=== PATIENT | female | born 1985 | race Caucasian/White ===

== ENCOUNTER → 2018-12-22 12:57 | Outpatient (CLI) | payer OTHER, SELFPAY ==
[2018-12-22 13:56] LABS: Add Manual Diff / Slide Review NO; Basophils Absolute Auto 0 /uL (0-100); Basophils Percent Auto 0.3 % (0-2); Eosinophils Absolute Auto 0 /uL (0-450); Eosinophils Percent Auto 0.3 % (2-4); Hematocrit 39.4 % (36-46); Hemoglobin 13.3 g/dL (12.0-16.0); Lymphocytes Absolute Auto 1800 /uL (1100-4500); Lymphocytes Percent Auto 19.4 % (25-40); Mean Corpuscular HGB Conc 33.8 % (30-36); Mean Corpuscular Hemoglobin 28.5 PG (26-34); Mean Corpuscular Volume 84.5 fL (80-100); Monocytes Absolute Auto 300 /uL (0-900); Monocytes Percent Auto 3.4 % (3-14); Neutrophils Absolute Auto 7200 /uL (1500-7000); Neutrophils Percent Auto 76.6 % (50-75); Platelet Count 303 X10^3/uL (150-400); Red Blood Cell Count 4.66 X10^6/uL (4.0-5.2); Red Cell Distribution Width 13.2 % (11.6-14.8); White Blood Cell Count 9.4 X10^3/uL (4.5-11.0)
[2018-12-22 15:52] LABS: Appearance Urine UA CLEAR; Bilirubin Urine UA NEGATIVE (NEGATIVE); Color Urine UA YELLOW; Glucose Urine UA NEGATIVE (Negative); Ketones Urine UA NEGATIVE (NEGATIVE); Leukocyte Esterase Urine UA NEGATIVE (NEGATIVE); Nitrite Urine UA NEGATIVE (Negative); Occult Blood Urine UA NEGATIVE (Negative); Protein Urine UA NEGATIVE (Negative); Urobilinogen Urine UA 0.2 E.U./dL (0.2); pH Urine UA 6.5 (4.5-8.0)
[2018-12-22 17:27] LABS: HIV 1 and 2 Antibody NEGATIVE (NEGATIVE); Hep C Virus Ab w/Reflex Quant NEGATIVE s/c (NEGATIVE); Hepatitis B Surface Antigen NEGATIVE s/c (NEGATIVE); Rubella Antibody IgG 63.5 IU/mL (>15)
[2018-12-24 14:26] LABS: RPR Screen Nonreactive (Nonreactive)
== END ==
PROVIDERS: PCP Specialist; Visit Provider Specialist
DX: Z34.01 Encounter for supervision of normal first pregnancy, first trimester (principal)
CPT/HCPCS: 36415; 80055; 81003; 86703; 86787; 86803; 86850; 86900; 86901; 87086

== ENCOUNTER → 2019-02-16 12:05 | Outpatient (CLI) | payer OTHER, SELFPAY ==
[2019-02-20 13:23] LABS: AFP, Serum 79.4 ng/mL; Calc Gestational Age 18.4; Cigarette Smoker N; Donated Egg NOT GIVEN; Donor Egg Age NOT GIVEN; Estriol, Free 1.73 ng/mL; Inhibin A, Dimeric 186 pg/mL; Maternal Weight 120 lbs; Number of Fetuses NOT GIVEN; Previous Pregnancy Down Syndro NOT GIVEN; hCG, MoM 0.84; hCG, Serum 24.9 IU/mL
== END ==
PROVIDERS: PCP Specialist; Visit Provider Specialist
DX: Z34.02 Encounter for supervision of normal first pregnancy, second trimester (principal); Z3A.18 18 weeks gestation of pregnancy
CPT/HCPCS: 36415; 82105; 82677; 84702; 86336

== ENCOUNTER → 2019-03-02 12:51 | Outpatient (CLI) | payer OTHER, SELFPAY ==
--- NOTE | 2019-03-02 12:58 | DI.US.S_ITS ---
PROCEDURE: US OB >= 14 WEEKS FETUS INDICATIONS: 20 WEEK ANATOMY SCAN OUTSIDE/PRIOR DATING DATA: Last menstrual period (LMP): 10/10/18. LMP-based estimated date of delivery (ANTONIA): 07/17/19. First dating scan (date and location): This study, 03/02/19. Estimated date of delivery (ANTONIA) from first dating scan: Centered on 07/13/19. TECHNIQUE: Real-time scanning was performed of the fetus, with image documentation and biometric measurements. Endovaginal scanning: Not needed for this study COMPARISON: [facility], , OB >= 14 WEEKS FETUS, 02/16/2019, 11:53. FINDINGS: General: A single living intrauterine gestation is present. Presentation: Breech. Placenta: Placental position is anterior, without previa. Lower placental edge 2 cm or less from internal cervical os qualifies as low lying placenta. Amniotic fluid index: 16.4 cm, normal range is 5-24 cm. heart rate: 140 beats per minute. Maternal cervical canal: 4.5 cm long. Normal lower limit is 2.5 cm. biometrics: Biparietal diameter: 5.1 cm, 21 weeks 2 days Head circumference: 18.6 cm, 21 weeks 0 days Abdominal circumference: 15.4 cm, 20 weeks 4 days Femur length: 3.4 cm, 20 weeks 6 days Estimated gestational age from initial scan: not applicable. Composite gestational age from present scan: 21 weeks 0 days Estimated weight and percentile: 373 g, 62nd percentile Measurement variability for biometric dating: +/- 7 days from 14 weeks to 15 weeks 6 days gestation, +/- 10 days from 16 weeks to 21 weeks 6 days gestation, +/- 2 weeks from 22 weeks to 27 weeks 6 days gestation, +/- 3 weeks for 28 weeks gestation or later. weight reference: 4500 g or EFW >90/95% is considered macrosomia or large for gestational age. EFW <10% is small for gestational age. EFW 5% or less is considered intra-uterine growth restriction. Anatomic survey: Neuro: Ventricles are non-dilated at less than 10 mm. Cisterna magna is normal at 3-11 mm. Cerebellum is normal in size and morphology. Nuchal skin fold: Normal at less than 6 mm between 14-21 weeks gestational age. Face: Nose and lips, facial profile are normal. Spine: No evidence for spina bifida. Heart: 4-chambered heart is present, with normal ventricular outflow tracts. Diaphragm: Diaphragm is intact. Stomach: Left-sided stomach is present. Kidneys: No hydronephrosis. Normal is less than 5 mm in 2nd trimester, less than 7 mm in 3rd trimester. Cord: 3-vessel cord has orthotopic insertion. Bladder: Normal in size. Extremities: All 4 extremities identified. IMPRESSION: Single living intrauterine gestation with normal survey of anatomy. Breech presentation at this time. Anterior placenta, normal amniotic fluid volume. The delivery date is projected to be centered on 07/13/19. Dictated by: Francisco Wayne M.D. on 03/02/2019 at 15:13 Approved by: Francisco Wayne M.D. on 03/02/2019 at 15:16
== END ==
PROVIDERS: PCP Specialist; Visit Provider Specialist
DX: Z34.82 Encounter for supervision of other normal pregnancy, second trimester (principal); Z3A.21 21 weeks gestation of pregnancy
CPT/HCPCS: 76811

== ENCOUNTER → 2019-04-20 12:47 | Outpatient (CLI) | payer OTHER, SELFPAY ==
[2019-04-20 14:36] LABS: Hemoglobin 11.7 g/dL (12.0-16.0)
[2019-04-20 15:50] LABS: GTT (PREG) 1 Hour PP 50gm Dose 114 mg/dL (76-139)
== END ==
PROVIDERS: PCP Specialist; Visit Provider Specialist
DX: Z34.03 Encounter for supervision of normal first pregnancy, third trimester (principal)
CPT/HCPCS: 36415; 82950; 85014; 85018

== ENCOUNTER → 2019-06-22 12:08 | Outpatient (CLI) | payer OTHER, SELFPAY ==
[2019-06-23 10:05] LABS: Strep Grp B PCR NEG for Grp B Strep
== END ==
PROVIDERS: PCP Specialist; Visit Provider Specialist
DX: Z34.83 Encounter for supervision of other normal pregnancy, third trimester (principal)
CPT/HCPCS: 87653

== ENCOUNTER 2019-06-29 06:51 | Inpatient (IN) | payer OTHER, SELFPAY ==
[2019-06-29] MEDS: LACTATED RINGERS 1,000 ML 100 ML IV ×2 (07:30→08:41)
[2019-06-29 07:43] LABS: Add Manual Diff / Slide Review NO; Basophils Absolute Auto 100 /uL (0-100); Basophils Percent Auto 0.7 % (0-2); Eosinophils Absolute Auto 0 /uL (0-450); Eosinophils Percent Auto 0.2 % (2-4); Hematocrit 34.2 % (36-46); Hemoglobin 11.5 g/dL (12.0-16.0); Lymphocytes Absolute Auto 2200 /uL (1100-4500); Lymphocytes Percent Auto 13.5 % (25-40); Mean Corpuscular HGB Conc 33.5 % (30-36); Mean Corpuscular Hemoglobin 26.1 PG (26-34); Mean Corpuscular Volume 78.1 fL (80-100); Monocytes Absolute Auto 600 /uL (0-900); Monocytes Percent Auto 3.6 % (3-14); Neutrophils Absolute Auto 13400 /uL (1500-7000); Platelet Count 240 X10^3/uL (150-400); Red Blood Cell Count 4.38 X10^6/uL (4.0-5.2); Red Cell Distribution Width 13.4 % (11.6-14.8); White Blood Cell Count 16.3 X10^3/uL (4.5-11.0)
--- NOTE | 2019-06-29 07:51 | PM.OBHP.1 ---
OB HPI Date/Time Date of admission: 06/29/19 Date Patient Seen: 06/29/19 Time Patient Seen: 07:52 History of Present Condition Chief complaint: EVALUATION OF LABOR : 2 Para: 1 Estimated Date of Delivery: 07/17/19 Estimated Gestational Age (weeks): 37 Narrative: [place] is a 33 year old female with spontaneous rupture membranes in active labor History of Present care: good care, initiated at week # (10), number of visits (9) and pounds weight gain (18) Dating criteria: LMP confirmed by 1st trimester US Ultrasounds: normal mid trimester US Obstetrical complications: none Medical complications: none Preadmission Labs Blood type: A (+) positive -: Antibody screen: negative, GBS status: negative, HBsAG: negative, HIV: negative and RPR/VDLR: negative -: Rubella: immune and Varicella: immune Quad screen: Normal 1 hr GTT: 114 Prior (ies) History: 08/2015 14 week demise Evaluation Evaluation Baseline heart rate: 140 Variability: Moderate (11-25) monitor accelerations: Present monitor decelerations: Episodic Contraction Frequency (minutes): 3 Uterine Contraction Intensity: Strong/Firm Category of Tracing: II Cervical dilation (cm): 9 Cervical effacement (%): 100 station: 0 Laboratory results: Laboratory Tests 06/29/19 06:50 WBC 16.3 H RBC 4.38 Hgb 11.5 L Hct 34.2 L MCV 78.1 L MCH 26.1 MCHC 33.5 RDW 13.4 Plt Count 240 Neut % (Auto) 82.0 H Lymph % (Auto) 13.5 L [place] % (Auto) 3.6 Eos % (Auto) 0.2 L Baso % (Auto) 0.7 Neut # (Auto) 10147 H Lymph # (Auto) 2200 [place] # (Auto) 600 Eos # (Auto) 0 Baso # (Auto) 100 PFSH Medical History (Updated 06/29/19 @ 08:01 by Felicity Ram MD) Migraine headache with aura (Chronic) Surgical History (Updated 06/29/19 @ 08:02 by Felicity Ram MD) H/O dilation and curettage (Inactive) Social History Smoking Status: Never smoker Social History Smoking Status: Never smoker Meds Home Medications Medication Instructions Recorded Confirmed Type 1 tab PO DAILY 12/21/18 12/21/18 History vitamin,calcium,vxcvcvhe-yyam-sebpf acid tablet omeprazole 40 mg capsule,delayed 40 mg PO DAILY #30 cap 05/25/19 Rx release Allergies Allergy/AdvReac Type Severity Reaction Status Date / Time No Known Drug Allergies Allergy Verified 12/21/18 18:30 Review of Systems Review of Systems Patient denies any signs or symptoms of preeclampsia she had spontaneous rupture membranes. Good movement. No fevers All systems reviewed & are unremarkable except as noted in HPI and below Exam Vital Signs (past 8 hours): Blood pressure 156/90, pulse 111, temperature 97.6? Narrative Exam Narrative: HEENT exam within normal limits. Lungs are clear to auscultation and percussion. Heart is regular rate and rhythm no S3-S4 or murmurs. Abdomen is gravid. Extremities without edema and nontender. Objective Labs Result Diagrams: 06/29/19 06:50 Labs: Laboratory Results - last 24 hr 06/29/19 06:50 WBC 16.3 H RBC 4.38 Hgb 11.5 L Hct 34.2 L MCV 78.1 L MCH 26.1 MCHC 33.5 RDW 13.4 Plt Count 240 Neut % (Auto) 82.0 H Lymph % (Auto) 13.5 L [place] % (Auto) 3.6 Eos % (Auto) 0.2 L Baso % (Auto) 0.7 Neut # (Auto) 92803 H Lymph # (Auto) 2200 [place] # (Auto) 600 Eos # (Auto) 0 Baso # (Auto) 100 Assessment and Plan Assessment and Plan Assessment and Plan narrative: Thirty-seven week gestation in active labor. Anticipate vaginal delivery.
--- NOTE | 2019-06-29 08:04 | P.HPOB_ITS ---
OB HPI Date/Time Date of admission: 06/29/19 Date Patient Seen: 06/29/19 Time Patient Seen: 07:52 History of Present Condition Chief complaint: EVALUATION OF LABOR : 2 Para: 1 Estimated Date of Delivery: 07/17/19 Estimated Gestational Age (weeks): 37 Narrative: [place] is a 33 year old female with spontaneous rupture membranes in active labor History of Present care: good care, initiated at week # (10), number of visits (9) and pounds weight gain (18) Dating criteria: LMP confirmed by 1st trimester US Ultrasounds: normal mid trimester US Obstetrical complications: none Medical complications: none Preadmission Labs Blood type: A (+) positive -: Antibody screen: negative, GBS status: negative, HBsAG: negative, HIV: negative and RPR/VDLR: negative -: Rubella: immune and Varicella: immune Quad screen: Normal 1 hr GTT: 114 Prior (ies) History: 08/2015 14 week demise Evaluation Evaluation Baseline heart rate: 140 Variability: Moderate (11-25) monitor accelerations: Present monitor decelerations: Episodic Contraction Frequency (minutes): 3 Uterine Contraction Intensity: Strong/Firm Category of Tracing: II Cervical dilation (cm): 9 Cervical effacement (%): 100 station: 0 Laboratory results: Laboratory Tests 06/29/19 06:50 WBC 16.3 H RBC 4.38 Hgb 11.5 L Hct 34.2 L MCV 78.1 L MCH 26.1 MCHC 33.5 RDW 13.4 Plt Count 240 Neut % (Auto) 82.0 H Lymph % (Auto) 13.5 L [place] % (Auto) 3.6 Eos % (Auto) 0.2 L Baso % (Auto) 0.7 Neut # (Auto) 04268 H Lymph # (Auto) 2200 [place] # (Auto) 600 Eos # (Auto) 0 Baso # (Auto) 100 PFSH Medical History (Updated 06/29/19 @ 08:01 by Felicity Ram MD) Migraine headache with aura (Chronic) Surgical History (Updated 06/29/19 @ 08:02 by Felicity Ram MD) H/O dilation and curettage (Inactive) Social History Smoking Status: Never smoker Social History Smoking Status: Never smoker Meds Home Medications Medication Instructions Recorded Confirmed Type 1 tab PO DAILY 12/21/18 12/21/18 History vitamin,calcium,oqqfcsar-vpox-vsmaw acid tablet omeprazole 40 mg capsule,delayed 40 mg PO DAILY #30 cap 05/25/19 Rx release Allergies Allergy/AdvReac Type Severity Reaction Status Date / Time No Known Drug Allergies Allergy Verified 12/21/18 18:30 Review of Systems Review of Systems Patient denies any signs or symptoms of preeclampsia she had spontaneous rupture membranes. Good movement. No fevers All systems reviewed & are unremarkable except as noted in HPI and below Exam Vital Signs (past 8 hours): Blood pressure 156/90, pulse 111, temperature 97.6? Narrative Exam Narrative: HEENT exam within normal limits. Lungs are clear to auscultation and percussion. Heart is regular rate and rhythm no S3-S4 or murmurs. Abdomen is gravid. Extremities without edema and nontender. Objective Labs Result Diagrams: 06/29/19 06:50 Labs: Laboratory Results - last 24 hr 06/29/19 06:50 WBC 16.3 H RBC 4.38 Hgb 11.5 L Hct 34.2 L MCV 78.1 L MCH 26.1 MCHC 33.5 RDW 13.4 Plt Count 240 Neut % (Auto) 82.0 H Lymph % (Auto) 13.5 L [place] % (Auto) 3.6 Eos % (Auto) 0.2 L Baso % (Auto) 0.7 Neut # (Auto) 75639 H Lymph # (Auto) 2200 [place] # (Auto) 600 Eos # (Auto) 0 Baso # (Auto) 100 Assessment and Plan Assessment and Plan Assessment and Plan narrative: Thirty-seven week gestation in active labor. Anticipate vaginal delivery.
[2019-06-29 10:54] VITALS: BP 132/75
[2019-06-29] MEDS: OXYTOCIN 10 UNIT/ML VIAL 20 UNIT (11:26)
--- NOTE | 2019-06-29 11:46 | PM.OBPRVD ---
Delivery date: 06/29/19 Intrapartal events: Prolonged 2nd Stage > 2.5 hours Cervical ripening method: none Induction method: none Delivery monitor: external FHT and external uterine Route of delivery: forceps (Low ) Indication for instrumentation: maternal exhaustion L&D Laceration Description: Vaginal - 3rd Degree (Partial) Delivery repair: vicryl (0 for the rectal sphincter capsule on the right side) and chromic (3-0) Estimated blood loss (mL): 200 Anesthesia type: Epidural Narrative: Patient arrived on Labor and delivery in active labor after spontaneous rupture membranes. She received an epidural catheter for pain control. She progressed rapidly to complete dilation. heart tones with intermittent severe variable decelerations. These responded to position change, O2, IV fluid bolus. After 2-1/2 hours the patient 0 had maternal exhaustion and requested assistance for delivery. The patient's bladder was drained with an in-and out red rubber catheter. Forceps were placed. With 1 contraction the infant was delivered and placed on the maternal abdomen. After the cord stopped pulsating the cord was clamped, cut, and cord bloods obtained. The patient was found to have a partial tear in the external rectal sphincter capsule only on the right side. As well as a right vaginal sidewall tear. Interrupted figure of 8 sutures of 0 Vicryl were used to repair the capsule. The right sidewall tear was repaired with 3 0 chromic suture. The remaining repair was closed in the usual 2 layer fashion with 3 0 chromic suture. Estimated blood loss 200 cc. Both infant and mother doing well. [place] Baby 1: gender: Male Presentation: vertex position: Right Occiput Anterior Placenta delivery description: Spontaneous cord vessel description: Around Extremity x1 (Shoulder) score (1 min): 8 score (5 min): 9
--- NOTE | 2019-06-29 11:54 | P.PCNOB_ITS ---
Delivery date: 06/29/19 Intrapartal events: Prolonged 2nd Stage > 2.5 hours Cervical ripening method: none Induction method: none Delivery monitor: external FHT and external uterine Route of delivery: forceps (Low ) Indication for instrumentation: maternal exhaustion L&D Laceration Description: Vaginal - 3rd Degree (Partial) Delivery repair: vicryl (0 for the rectal sphincter capsule on the right side) and chromic (3-0) Estimated blood loss (mL): 200 Anesthesia type: Epidural Narrative: Patient arrived on Labor and delivery in active labor after spontaneous rupture membranes. She received an epidural catheter for pain control. She progressed rapidly to complete dilation. heart tones with intermittent severe variable decelerations. These responded to position change, O2, IV fluid bolus. After 2-1/2 hours the patient 0 had maternal exhaustion and requested assistance for delivery. The patient's bladder was drained with an in-and out red rubber catheter. Forceps were placed. With 1 contraction the infant was delivered and placed on the maternal abdomen. After the cord stopped pulsating the cord was clamped, cut, and cord bloods obtained. The patient was found to have a partial tear in the external rectal sphincter capsule only on the right side. As well as a right vaginal sidewall tear. Interrupted figure of 8 sutures of 0 Vicryl were used to repair the capsule. The right sidewall tear was repaired with 3 0 chromic suture. The remaining repair was closed in t he usual 2 layer fashion with 3 0 chromic suture. Estimated blood loss 200 cc. Both infant and mother doing well. [place] Baby 1: Infant gender: Male Presentation: vertex position: Right Occiput Anterior Placenta delivery description: Spontaneous cord vessel description: Around Extremity x1 (Shoulder) score (1 min): 8 score (5 min): 9
[2019-06-29] MEDS: IBUPROFEN 600 MG TABLET PO ×2 (13:48→19:49)
[2019-06-29] MEDS: DERMOPLAST SPRAY 20% 60 ML 1 SPRAY TOP (13:49)
[2019-06-29 21:08] VITALS: TEMP 37.3
[2019-06-29 21:32] VITALS: TEMP 37.3
[2019-06-29] MEDS: HYDROCODONE/ACET 5/325 TABLET 2 TAB PO (21:32)
[2019-06-30] MEDS: HYDROCODONE/ACET 5/325 TABLET 2 TAB PO (01:54)
[2019-06-30] MEDS: IBUPROFEN 600 MG TABLET PO ×3 (01:57→17:12)
[2019-06-30 09:13] VITALS: TEMP 37.3
[2019-06-30] MEDS: DOCUSATE 250 MG CAPSULE PO (09:13)
[2019-06-30] MEDS: MAGNESIUM HYDROXIDE 30 ML UDC PO (09:15)
--- NOTE | 2019-06-30 10:12 | P.PNOB_ITS ---
Subjective - OB Patient comments: no complaints baby status: doing well [place] feeding status: exclusively breast feeding Narrative: Patient post vaginal delivery forceps assisted. She had a partial third-degree tear. She is doing well . She is taking p.o. well para she is ambulating well. Her IVs been discontinued. She is voiding well and g ood volumes. Date Patient Seen: 06/30/19 Time Patient Seen: 10:11 Exam Vital Signs (past 8 hours): - 06/30/19 09:13 Temperature 99.1 F Narrative Exam Narrative: Fundus U minus two Lochia scant [employer] without ecchymoses or swelling Objective Labs Result Diagrams: 06/29/19 06:50 Assessment & Plan Plan day: 1 plan OB: routine care Time Spent With Patient Total time spent is greater than 50% in coordination of care (as documented) at patient's floor/unit and/or counseling patient: less than 15 minutes
[2019-06-30 10:25] LABS: Hematocrit 27.6 % (36-46)
[2019-06-30] MEDS: ACETAMINOPHEN 325 MG TABLET 650 MG PO (17:12)
[2019-06-30 18:44] LABS: Appearance Urine UA SL CLOUDY; Bilirubin Urine UA NEGATIVE (NEGATIVE); Glucose Urine UA NEGATIVE (Negative); Ketones Urine UA NEGATIVE (NEGATIVE); Leukocyte Esterase Urine UA 1+ (NEGATIVE); Nitrite Urine UA NEGATIVE (Negative); Occult Blood Urine UA 3+ (Negative); Protein Urine UA NEGATIVE (Negative); Urobilinogen Urine UA 0.2 E.U./dL (0.2); pH Urine UA 7.5 (4.5-8.0)
[2019-06-30 18:52] LABS: Color Urine UA PINK
[2019-06-30 19:03] LABS: Bacteria Urine Occasional (0-1); Culture Indicated Urine Specimen Cultured; RBC Urine 30-100/HPF (0-5/HPF); Squamous Epithelial Cell Urine 0-1 /HPF (0-5/HPF); WBC Urine 5-10/HPF (0-5/HPF)
[2019-07-01] MEDS: IBUPROFEN 600 MG TABLET PO (04:20)
[2019-07-01] MEDS: HYDROCODONE/ACET 5/325 TABLET 2 TAB PO (04:21)
--- NOTE | 2019-07-01 08:47 | PM.OBDS.1 ---
Discharge Providers Date of admission: 06/29/19 06:51 Discharge Date: 07/01/19 Primary care physician: Felicity Ram MD Consults: 06/29/19 07:27 Consult to Anesthesiology Urgent Comment: Consulting Provider: Anesthesiologist Reason for consultation: Epidural Has provider been notified: No 06/29/19 12:21 Consult to [employer] Routine Comment: Discharge provider: Kartik Stewart MD Summary Date Patient Seen: 07/01/19 Time Patient Seen: 08:48 Peripartum Data Infant Delivery Method: Assisted Delivery (Low forceps delivery) Laceration description: Vaginal - 2nd Degree Procedures: Low forceps delivery with small sulcus tear complications: other (Problems voiding for 24 hours then okay) Status at Discharge Cognitive/behavioral status at discharge: oriented Functional status at discharge: independent ambulation Overall status at discharge: patient is progressing back to baseline Time Spent with Patient Total time spent providing and/or coordinating discharge services: Less than 30 minutes Objective Labs Result Diagrams: 06/30/19 10:15 Labs: Laboratory Results - last 24 hr 06/30/19 06/30/19 10:15 18:42 Hct 27.6 L Urine Color [place] Urine Appearance Sl cloudy Urine pH 7.5 Ur Specific [place] 1.010 Urine Protein Negative Urine Glucose (UA) Negative Urine Ketones Negative Urine Occult Blood 3+ H Urine Nitrate Negative Urine Bilirubin Negative Urine Urobilinogen 0.2 Ur Leukocyte Esterase 1+ H Urine RBC 30-100/hpf H Urine WBC 5-10/hpf H Ur Squamous Epith Cells 0-1 /hpf Urine Bacteria Occasional (0-1) Ur Culture Indicated? Specimen cultured Exam Narrative Exam Narrative: Fundus U minus two Lochia scant Perineum without ecchymosis, hematoma Discharge Plan Discharge Plan Patient Disposition: Home Discharge Med Rec/Prescriptions Prescriptions: New Dermoplast (with menthol) 20-0.5 % Aerosol 1 spray topical Q1HR PRN (Reason: Pain, Moderate (4-6)) Qty: 56 RF: 0 docusate sodium 250 mg Capsule 250 mg PO DAILY Qty: 14 RF: 0 hydrocodone-acetaminophen 5-325 mg Tablet 2 tab PO Q4HR PRN (Reason: Pain, Severe (7-10)) Qty: 14 RF: 0 magnesium hydroxide [Milk of Magnesia] 400 mg/5 mL Suspension 30 ml PO DAILY PRN (Reason: Constipation) Qty: 118 RF: 0 ibuprofen 600 mg Tablet 600 mg PO Q6HR PRN (Reason: Pain, Mild (1-3)) Qty: 20 RF: 0 Discontinued prenat.vits,da,zmo-hryl-gdvor tablet 1 tab PO DAILY RF: 0 omeprazole 40 mg capsule,delayed release(DR/EC) 40 mg PO DAILY Qty: 30 RF: 2 Follow up/Referrals: Felicity Ram MD [Primary Care Provider] - 08/03/19 Provider Discharge Instructions Diet: Diet as Tolerated Activity: Up ad amber, may shower, no cord Skin/Wound/Dressing Care Skin care: Keep episiotomy clean and dry Report to your healthcare provider any signs of infection, such as:: chills, fever, increased pain, unusual drainage and unusual redness Dressing: None Discharge Data Primary Care Provider: Felicity Ram Attending Provider: Felicity Ram Admit Date/Time: 06/29/19 06:51
[2019-07-01 09:06] VITALS: BP 106/67; PULSE 79; RESP 16; TEMP 37.2
== END 2019-07-01 12:05 | disposition home or self-care (01) | DRG 768 ==
PROVIDERS: Admitting Provider Specialist; PCP Specialist; Visit Provider Specialist
DX: O75.81 Maternal exhaustion complicating labor and delivery (principal); Z37.0 Single live birth; Z3A.37 37 weeks gestation of pregnancy; O70.20 Third degree perineal laceration during delivery, unspecified; O71.89 Other specified obstetric trauma
CPT/HCPCS: 01967; 36415; 59050; 59400; 81001; 84112; 85014; 85025; 86850; 86900; 86901; 87077; 87086; 87186; G0379; J2590

== ENCOUNTER → 2021-07-28 16:31 | Outpatient (CLI) | payer OTHER, SELFPAY ==
[2021-07-28 17:56] LABS: Add Manual Diff / Slide Review NO; Basophils Absolute Auto 100 /uL (0-100); Basophils Percent Auto 0.9 % (0-2); Eosinophils Absolute Auto 100 /uL (0-450); Eosinophils Percent Auto 0.8 % (2-4); Hematocrit 36.6 % (36-46); Lymphocytes Absolute Auto 1900 /uL (1100-4500); Lymphocytes Percent Auto 30.3 % (25-40); Mean Corpuscular HGB Conc 32.8 % (30-36); Mean Corpuscular Volume 79.2 fL (80-100); Monocytes Absolute Auto 400 /uL (0-900); Monocytes Percent Auto 5.9 % (3-14); Neutrophils Absolute Auto 4000 /uL (1500-7000); Neutrophils Percent Auto 62.1 % (50-75); Platelet Count 208 X10^3/uL (150-400); Red Blood Cell Count 4.62 X10^6/uL (4.0-5.2); Red Cell Distribution Width 15.4 % (11.6-14.8); White Blood Cell Count 6.4 X10^3/uL (4.5-11.0)
[2021-07-28 18:02] LABS: Alanine Aminotransferase 39 IU/L (<35); Albumin 4.2 g/dL (3.5-5.0); Albumin Globulin Ratio 1.2 (1.0-2.8); Alkaline Phosphatase 69 U/L (38-126); Aspartate Aminotransferase 33 IU/L (14-36); BUN Creatinine Ratio 12.7 (6-22); Bilirubin Total 0.3 mg/dL (0.2-1.3); Blood Urea Nitrogen 7 mg/dL (7-17); Calcium 8.7 mg/dL (8.4-10.2); Carbon Dioxide 30 mmol/L (22-32); Chloride 106 mmol/L (98-107); Estimated Glomerular Filt Rate > 60.0 mL/min (>60); Globulin 3.4 g/dL (1.7-4.1); Glucose 88 mg/dL (70-100); HEMOLYSIS < 15 (0-50); Potassium 3.5 mmol/L (3.4-5.1); Sodium 141 mmol/L (137-145); Total Protein 7.6 g/dL (6.3-8.2)
[2021-07-28 18:13] LABS: Pregnancy Test Urine Negative (Negative)
== END ==
PROVIDERS: PCP Nurse Practitioner Family; Referring Provider Registered Nurse; Visit Provider Registered Nurse
DX: Z30.40 Encounter for surveillance of contraceptives, unspecified (principal)
CPT/HCPCS: 36415; 80053; 81025; 85025

== ENCOUNTER 2024-08-17 12:34 | Emergency (ER) | payer OTHER, SELFPAY ==
[2024-08-17 12:37] VITALS: BP 125/77; PULSE 98; RESP 17; TEMP 36.7; O2SAT 100; BMI 26.6
--- NOTE | 2024-08-17 12:48 | EKG_ITS ---
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
--- NOTE | 2024-08-17 12:51 | DI.US.S_ITS ---
PROCEDURE: US OB <= 14 WEEKS FETUS INDICATIONS: CRAMPING OUTSIDE/PRIOR DATING DATA: Last menstrual period (LMP): 06/13/24 LMP-based estimated date of delivery (ANTONIA): 03/20/25. First dating scan (date and location): This study. Estimated date of delivery (ANTONIA) from first dating scan: 03/28/25. The calculations are made using the ultrasound derived ANTONIA of today. TECHNIQUE: Real-time scanning was performed of the fetus and maternal pelvic organs, with image documentation. Endovaginal scanning was also performed to better visualize the fetus and maternal ovaries. COMPARISON: None. FINDINGS: Embryo: [place]-rump length 1.7 cm correlates with a gestational age of 8 weeks 1 day, +/-5 days Heart rate: 178 beats per minute Maternal organs: Ovaries not well seen due to bowel gas. IMPRESSION: Living intrauterine gestation, early 1st trimester. Delivery date projected to be centered on 03/28/25, +/-5 days. Dictated by: Francisco Wayne M.D. on 08/17/2024 at 13:45 Approved by: Francisco Wayne M.D. on 08/17/2024 at 13:47
[2024-08-17 13:03] LABS: Add Manual Diff / Slide Review NO; Basophils Absolute Auto 0 /uL (0-100); Basophils Percent Auto 0.4 % (0-2); Eosinophils Absolute Auto 100 /uL (0-450); Eosinophils Percent Auto 0.5 % (2-4); Hematocrit 33.6 % (36-46); Hemoglobin 11.2 g/dL (12.0-16.0); Lymphocytes Absolute Auto 2000 /uL (1100-4500); Lymphocytes Percent Auto 19.2 % (25-40); Mean Corpuscular HGB Conc 33.3 % (30-36); Mean Corpuscular Hemoglobin 25.7 PG (26-34); Mean Corpuscular Volume 77.1 fL (80-100); Monocytes Absolute Auto 600 /uL (0-900); Monocytes Percent Auto 6.1 % (3-14); Neutrophils Absolute Auto 7700 /uL (1500-7000); Neutrophils Percent Auto 73.8 % (50-75); Platelet Count 316 X10^3/uL (150-400); Red Blood Cell Count 4.35 X10^6/uL (4.0-5.2); Red Cell Distribution Width 16.5 % (11.6-14.8); White Blood Cell Count 10.5 X10^3/uL (4.5-11.0)
[2024-08-17 13:09] LABS: INR 0.9 (0.9-1.3); Prothrombin Time 10.5 SECONDS (9.4-12.5)
[2024-08-17 13:11] LABS: PTT Partial Thromboplastin Tim 35 SECONDS (25.1-36.5)
[2024-08-17 13:11] LABS: Pregnancy Test Urine Positive (Negative)
[2024-08-17 13:13] LABS: Appearance Urine UA CLEAR; Bilirubin Urine UA NEGATIVE (NEGATIVE); Color Urine UA YELLOW; Glucose Urine UA NEGATIVE (Negative); Ketones Urine UA NEGATIVE (NEGATIVE); Leukocyte Esterase Urine UA 1+ (NEGATIVE); Nitrite Urine UA NEGATIVE (Negative); Occult Blood Urine UA NEGATIVE (Negative); Protein Urine UA NEGATIVE (Negative); Urobilinogen Urine UA 0.2 E.U./dL (0.2)
[2024-08-17 13:31] LABS: Bacteria Urine Moderate (10-30); Culture Indicated Urine Specimen Cultured; RBC Urine None Seen (0-5/HPF); Squamous Epithelial Cell Urine 1-5 /HPF (0-5/HPF); Urine Volume 10mL (spun); WBC Urine 1-5/HPF (0-5/HPF)
[2024-08-17 13:32] LABS: Alanine Aminotransferase 16 IU/L (<35); Albumin 3.6 g/dL (3.5-5.0); Alkaline Phosphatase 48 U/L (38-126); Aspartate Aminotransferase 23 IU/L (14-36); BUN Creatinine Ratio 11.5 (6-22); Bilirubin Total 0.2 mg/dL (0.2-1.3); Blood Urea Nitrogen 6 mg/dL (7-17); Calcium 8.5 mg/dL (8.4-10.2); Carbon Dioxide 23 mmol/L (22-32); Chloride 103 mmol/L (98-107); Creatine Kinase 47 U/L (30-135); Estimated Glomerular Filt Rate > 60 mL/min (>60); Globulin 3.7 g/dL (1.7-4.1); Glucose 102 mg/dL (70-100); HEMOLYSIS < 15 (0-50); Lipase 189 U/L (23-300); Magnesium 2.1 mg/dL (1.6-2.3); Potassium 3.4 mmol/L (3.4-5.1); Sodium 133 mmol/L (137-145); Total Protein 7.3 g/dL (6.3-8.2)
[2024-08-17 13:43] LABS: NT-proBNP (BNP-Adult 18+) < 20 pg/mL (<125); Troponin I < 0.012 ng/mL (0.01-0.034)
[2024-08-17 13:54] LABS: COVID-19 CEPHEID 4-PLEX PCR Negative (Negative); Influenza A - CEPHEID Flu A NEGATIVE (NEGATIVE); Influenza B - CEPHEID Flu B NEGATIVE (NEGATIVE); Respiratory Syncytial Virus Negative (Negative)
--- NOTE | 2024-08-17 20:55 | ED.CHESTPAIN ---
HPI - Chest Pain General Chief Complaint: Chest Pain Stated Complaint: 6wks Preg, Chest Pain, Cramps Source: patient Mode of arrival: Ambulatory History of Present Illness HPI narrative: Patient left without being seen by provider Related Data Previous Rx's Medication Instructions Recorded diclofenac sodium 1 % topical gel 2 g topical QID #100 grams 10/17/20 metaxalone 800 mg tablet 800 mg PO TID PRN muscle pain #90 10/17/20 tabs pantoprazole 40 mg tablet,delayed 40 mg PO DAILY #60 tabs 10/17/20 release medroxyprogesterone 150 mg/mL 150 mg IM [id number] #1 mL 09/23/21 intramuscular suspension (Depo-Provera) Allergies Allergy/AdvReac Type Severity Reaction Status Date / Time No Known Drug Allergies Allergy Verified 08/17/24 12:37 Patient History Medical History (Updated 08/17/24 @ 14:25 by Hui Telles RN) Encounter for IUD removal Contraceptive use Hearing loss in right ear (08/2020) Neck pain GERD (gastroesophageal reflux disease) Depression with anxiety Vaginal delivery (06/2019) Migraine headache with aura Surgical History H/O dilation and curettage Social History Smoking Status: Never smoker Smoking Status: Never smoker Substance Use Type: does not use Exam Initial Vital Signs Initial Vital Signs: Vital Signs Temperature 98.0 F 08/17/24 12:37 Pulse Rate 98 H 08/17/24 12:37 Respiratory Rate 17 08/17/24 12:37 Blood Pressure 125/77 08/17/24 12:37 Pulse Oximetry 100 08/17/24 12:37 Oxygen Delivery Method Room Air 08/17/24 12:37 Course Orders Ordered: ED Orders 08/17/24 12:41 EKG-12 Lead Stat 08/17/24 12:47 Complete Blood Count AUTO DIFF Stat Comprehensive Metabolic Panel Stat Lipase Stat Magnesium Stat NT-proBNP (BNP-Adult 18+) Stat PTT Partial Thromboplastin [place] Stat Prothrombin Time INR Stat Troponin & CK Cardiac Panel Stat 08/17/24 12:51 US OB <= 14 weeks fetus Stat 08/17/24 12:56 Covid-19 + FLU A/B + RSV - PCR Stat 08/17/24 12:59 Test Urine Stat Urinalysis and Microscopic Stat Urine Culture Stat MDM - Chest Pain Lab Data 08/17/24 12:47 08/17/24 12:47 Labs: Lab Results 08/17/24 08/17/24 08/17/24 Range/Units 12:47 12:56 12:59 WBC 10.5 (4.5-11.0) X10^3/uL RBC 4.35 (4.0-5.2) X10^6/uL Hgb 11.2 L (12.0-16.0) g/dL Hct 33.6 L (36-46) % MCV 77.1 L (80-100) fL MCH 25.7 L (26-34) PG MCHC 33.3 (30-36) % RDW 16.5 H (11.6-14.8) % Plt Count 316 (150-400) X10^3/uL Neut % (Auto) 73.8 (50-75) % Lymph % (Auto) 19.2 L (25-40) % [place] % (Auto) 6.1 (3-14) % Eos % (Auto) 0.5 L (2-4) % Baso % (Auto) 0.4 (0-2) % Neut # (Auto) 7700 H (6099-9002) /uL Lymph # (Auto) 2000 (3091-4568) /uL [place] # (Auto) 600 (0-900) /uL Eos # (Auto) 100 (0-450) /uL Baso # (Auto) 0 (0-100) /uL PT 10.5 (9.4-12.5) SECONDS INR 0.9 (0.9-1.3) APTT 35 (25.1-36.5) SECONDS Sodium 133 L (137-145) mmol/L Potassium 3.4 (3.4-5.1) mmol/L Chloride 103 (98-107) mmol/L Carbon Dioxide 23 (22-32) mmol/L BUN 6 L (7-17) mg/dL Creatinine 0.52 (0.52-1.04) mg/dL Estimated GFR > 60 (>60) mL/min BUN/Creatinine Ratio 11.5 (6-22) Glucose 102 H (70-100) mg/dL Calcium 8.5 (8.4-10.2) mg/dL Magnesium 2.1 (1.6-2.3) mg/dL Total Bilirubin 0.2 (0.2-1.3) mg/dL AST 23 (14-36) IU/L ALT 16 (<35) IU/L Alkaline Phosphatase 48 (38-126) U/L Total Creatine Kinase 47 (30-135) U/L Troponin I < 0.012 (0.01-0.034) ng/mL NT-Pro-B Natriuret Pep < 20 (<125) pg/mL Total Protein 7.3 (6.3-8.2) g/dL Albumin 3.6 (3.5-5.0) g/dL Globulin 3.7 (1.7-4.1) g/dL Albumin/Globulin Ratio 1.0 (1.0-2.8) Lipase 189 (23-300) U/L Urine Color Yellow Urine Appearance Clear Urine pH 6.0 (4.5-8.0) Ur Specific [place] 1.010 (1.000-1.035) Urine Protein Negative (Negative) Urine Glucose (UA) Negative (Negative) g/dL Urine Ketones Negative (NEGATIVE) Urine Occult Blood Negative (Negative) Urine Nitrate Negative (Negative) Urine Bilirubin Negative (NEGATIVE) Urine Urobilinogen 0.2 (0.2) E.U./dL Ur Leukocyte Esterase 1+ H (NEGATIVE) Urine RBC None seen (0-5/HPF) Urine WBC 1-5/hpf (0-5/HPF) Ur Squamous Epith Cells 1-5 /hpf (0-5/HPF) Urine Bacteria Moderate (10-30) H (None) Ur Culture Indicated? Specimen cultured Vol Urine Centrifuged 10ml (spun) Urine Test Positive H (Negative) SARS-CoV-2 (PCR) Negative (Negative) Influenza A (RT-PCR) Flu a negative (NEGATIVE) Influenza B (RT-PCR) Flu b negative (NEGATIVE) RSV (PCR) Negative (Negative) 08/17/24 Range/Units 12:59 WBC (4.5-11.0) X10^3/uL RBC (4.0-5.2) X10^6/uL Hgb (12.0-16.0) g/dL Hct (36-46) % MCV (80-100) fL MCH (26-34) PG MCHC (30-36) % RDW (11.6-14.8) % Plt Count (150-400) X10^3/uL Neut % (Auto) (50-75) % Lymph % (Auto) (25-40) % [place] % (Auto) (3-14) % Eos % (Auto) (2-4) % Baso % (Auto) (0-2) % Neut # (Auto) (8086-8797) /uL Lymph # (Auto) (5755-2768) /uL [place] # (Auto) (0-900) /uL Eos # (Auto) (0-450) /uL Baso # (Auto) (0-100) /uL PT (9.4-12.5) SECONDS INR (0.9-1.3) APTT (25.1-36.5) SECONDS Sodium (137-145) mmol/L Potassium (3.4-5.1) mmol/L Chloride (98-107) mmol/L Carbon Dioxide (22-32) mmol/L BUN (7-17) mg/dL Creatinine (0.52-1.04) mg/dL Estimated GFR (>60) mL/min BUN/Creatinine Ratio (6-22) Glucose (70-100) mg/dL Calcium (8.4-10.2) mg/dL Magnesium (1.6-2.3) mg/dL Total Bilirubin (0.2-1.3) mg/dL AST (14-36) IU/L ALT (<35) IU/L Alkaline Phosphatase (38-126) U/L Total Creatine Kinase (30-135) U/L Troponin I (0.01-0.034) ng/mL NT-Pro-B Natriuret Pep (<125) pg/mL Total Protein (6.3-8.2) g/dL Albumin (3.5-5.0) g/dL Globulin (1.7-4.1) g/dL Albumin/Globulin Ratio (1.0-2.8) Lipase (23-300) U/L Urine Color Urine Appearance Urine pH (4.5-8.0) Ur Specific [place] (1.000-1.035) Urine Protein (Negative) Urine Glucose (UA) (Negative) g/dL Urine Ketones (NEGATIVE) Urine Occult Blood (Negative) Urine Nitrate (Negative) Urine Bilirubin (NEGATIVE) Urine Urobilinogen (0.2) E.U./dL Ur Leukocyte Esterase (NEGATIVE) Urine RBC (0-5/HPF) Urine WBC (0-5/HPF) Ur Squamous Epith Cells (0-5/HPF) Urine Bacteria (None) Ur Culture Indicated? Vol Urine Centrifuged Urine Test Cancelled (Negative) SARS-CoV-2 (PCR) (Negative) Influenza A (RT-PCR) (NEGATIVE) Influenza B (RT-PCR) (NEGATIVE) RSV (PCR) (Negative) Discharge Plan Departure Patient Disposition: Left Without Being Seen Clinical Impression: Patient left before evaluation by physician Prescriptions: No Action medroxyprogesterone [Depo-Provera] 150 mg/mL suspension 150 mg IM [id number] Qty: 1 0RF metaxalone 800 mg tablet 800 mg PO TID PRN (Reason: muscle pain) Qty: 90 0RF Rx Instructions: may make you drowsy, do not drive pantoprazole 40 mg tablet,delayed release (DR/EC) 40 mg PO DAILY Qty: 60 0RF diclofenac sodium 1 % gel 2 g topical QID Qty: 100 0RF Rx Instructions: apply to neck
== END 2024-08-17 14:25 | disposition left against medical advice (07) ==
PROVIDERS: Emergency Provider Emergency Medicine
DX: R07.9 Chest pain, unspecified (principal); R10.9 Unspecified abdominal pain; Z3A.08 8 weeks gestation of pregnancy; Z11.52 Encounter for screening for COVID-19
CPT/HCPCS: 0241U; 76801; 76817; 80053; 81001; 81025; 82550; 83690; 83735; 83880; 84484; 85025; 85610; 85730; 87086; 93005; 93010; 99281

== ENCOUNTER → 2024-08-24 14:39 | Outpatient (CLI) | payer OTHER, SELFPAY ==
[2024-08-24 21:03] LABS: Urine N gonorrhoeae NOT DETECTED
[2024-08-24 21:04] LABS: Urine Chlamydia NOT DETECTED
== END ==
PROVIDERS: Visit Provider Specialist
DX: Z11.3 Encounter for screening for infections with a predominantly sexual mode of transmission (principal); Z3A.08 8 weeks gestation of pregnancy
CPT/HCPCS: 87491; 87591

== ENCOUNTER → 2024-09-03 15:25 | Outpatient (CLI) | payer OTHER, SELFPAY ==
[2024-09-03 16:32] LABS: Add Manual Diff / Slide Review NO; Basophils Absolute Auto 0 /uL (0-100); Basophils Percent Auto 0.3 % (0-2); Eosinophils Absolute Auto 100 /uL (0-450); Eosinophils Percent Auto 0.7 % (2-4); Hematocrit 33.6 % (36-46); Hemoglobin 11.2 g/dL (12.0-16.0); Lymphocytes Absolute Auto 1700 /uL (1100-4500); Lymphocytes Percent Auto 17.8 % (25-40); Mean Corpuscular HGB Conc 33.2 % (30-36); Mean Corpuscular Hemoglobin 25.6 PG (26-34); Mean Corpuscular Volume 77.2 fL (80-100); Monocytes Absolute Auto 700 /uL (0-900); Monocytes Percent Auto 6.8 % (3-14); Neutrophils Absolute Auto 7300 /uL (1500-7000); Neutrophils Percent Auto 74.4 % (50-75); Platelet Count 312 X10^3/uL (150-400); Red Blood Cell Count 4.35 X10^6/uL (4.0-5.2); Red Cell Distribution Width 15.9 % (11.6-14.8); White Blood Cell Count 9.8 X10^3/uL (4.5-11.0)
[2024-09-03 16:46] LABS: Natera Collection Specimen Collected
[2024-09-03 17:08] LABS: Hepatitis B Surface Antigen NEGATIVE s/c (NEGATIVE); Rubella Antibody IgG 40.9 IU/mL (>15)
[2024-09-03 17:25] LABS: HIV 1 & 2 Ab/Ag 4th Gen Combo NEGATIVE (NEGATIVE); Hep C Virus Ab w/Reflex Quant NEGATIVE s/c (NEGATIVE)
[2024-09-05 02:08] LABS: RPR Screen Non Reactive (Non Reactive)
[2024-09-05 09:09] LABS: Varicella IgG Antibody Reactive (Non Reactive)
== END ==
PROVIDERS: Referring Provider Specialist; Visit Provider Specialist
DX: O09.521 Supervision of elderly multigravida, first trimester (principal)
CPT/HCPCS: 36415; 80055; 86787; 86803; 86850; 86900; 86901; 87389

== ENCOUNTER → 2024-11-08 10:48 | Outpatient (CLI) | payer OTHER, SELFPAY ==
--- NOTE | 2024-11-08 10:49 | DI.US.S_ITS ---
PROCEDURE: US OB >= 14 WEEKS FETUS INDICATIONS: 20 week anatomy scan OUTSIDE/PRIOR DATING DATA: Last menstrual period (LMP): 06/13/2024. LMP-based estimated date of delivery (ANTONIA): 03/20/2025. First dating scan (date and location): 08/17/2024. Estimated date of delivery (ANTONIA) from first dating scan: 03/28/2025. The calculations are made using the ANTONIA of 03/30/2025. TECHNIQUE: Real-time scanning was performed of the fetus, with image documentation and biometric measurements. Endovaginal scanning: Not performed COMPARISON: [facility], , OB >= 14 WEEKS FETUS, 06/22/2019, 12:03. [facility], , OB <= 14 WEEKS FETUS, 08/24/2024, 14:52. FINDINGS: General: A single living intrauterine gestation is present. Presentation: Vertex. Placenta: Placental position is posterior , without previa. Amniotic fluid index: 12.2 cm, normal range is 5-24 cm. Single deepest vertical pocket is 3.8 cm. heart rate: 157 beats per minute. Maternal cervical canal: 4.4 cm long. Normal lower limit is 2.5 cm. biometrics: Biparietal diameter: 4.9 cm, 20 weeks 5 days Head circumference: 18.5 cm, 20 weeks 6 days Abdominal circumference: 15.5 cm, 20 weeks 4 days Femur length: 3.4 cm, 20 weeks 5 days Clinically estimated gestational age: 19 weeks 5 days Composite gestational age from present scan: 20 weeks 5 days Estimated weight and percentile: 369 g, 92% Anatomic survey: Neuro: Ventricles are non-dilated at less than 10 mm. Cisterna magna is normal at 3-11 mm. Cerebellum is normal in size and morphology. Nuchal skin fold: Normal at less than 6 mm between 14-21 weeks gestational age. Face: Nose and lips, facial profile are normal. Spine: No evidence for spina bifida. Heart: 4-chambered heart is present, with normal ventricular outflow tracts. Diaphragm: Diaphragm is intact. Stomach: Left-sided stomach is present. Kidneys: No hydronephrosis. Normal is less than 5 mm in 2nd trimester, less than 7 mm in 3rd trimester. Cord: 3-vessel cord has orthotopic insertion. Bladder: Normal in size. Extremities: All 4 extremities identified. IMPRESSION: 1. Single live intrauterine consistent with 20 weeks and 5 days. 2. Estimated weight is at the upper limits of normal in the 92nd percentile. Developing macrosomia is not excluded and follow-up ultrasound is recommended. 3. Normal anatomic survey. We strive to produce accurate, complete, and clear reports of imaging services. To assist us in improving patient care, this report was composed using standard report templates and voice recognition software. Therefore, it may contain abnormal punctuation, insertions and/or omissions. Occasional wrong-word or sound-alike substitutions may occur. Though we review the report and make efforts to correct it, we do recommend that the report be read carefully in proper context to recognize any text inaccuracies. Dictated by: Fermin Clark M.D. on 11/08/2024 at 15:59 Approved by: Fermin Clark M.D. on 11/08/2024 at 16:01
== END ==
PROVIDERS: Referring Provider Obstetrics & Gynecology; Visit Provider Obstetrics & Gynecology
DX: Z34.82 Encounter for supervision of other normal pregnancy, second trimester (principal); Z3A.20 20 weeks gestation of pregnancy
CPT/HCPCS: 76811

== ENCOUNTER → 2024-11-16 10:42 | Outpatient (CLI) | payer OTHER, SELFPAY | PROVIDERS: Referring Provider Specialist; Visit Provider Specialist | DX: Z3A.20 20 weeks gestation of pregnancy (principal); Z34.82 Encounter for supervision of other normal pregnancy, second trimester | CPT/HCPCS: 36415; 82105 ==

== ENCOUNTER → 2024-12-20 13:57 | Outpatient (CLI) | payer OTHER, SELFPAY ==
[2024-12-20 15:41] LABS: Hematocrit 30.8 % (36-46); Hemoglobin 9.9 g/dL (12.0-16.0)
[2024-12-20 17:30] LABS: GTT (PREG) 1 Hour PP 50gm Dose 101 mg/dL (76-139)
== END ==
PROVIDERS: Referring Provider Specialist; Visit Provider Specialist
DX: Z34.82 Encounter for supervision of other normal pregnancy, second trimester (principal); Z3A.26 26 weeks gestation of pregnancy
CPT/HCPCS: 82950; 85014; 85018

== ENCOUNTER 2025-03-01 15:22 | Outpatient (CLI) | payer OTHER, SELFPAY ==
--- NOTE | 2025-03-01 16:01 | P.TNLD_ITS ---
Visit Information Visit Information Date of evaluation: 03/01/25 Primary OB Provider: Felicity Ram Reason for Evaluation: Yes non-stress test non-stress test reason: other (Advanced maternal age) [facility] Medical History (Updated 03/01/25 @ 16:02 by Felicity Ram MD) Contraceptive use Vaginal delivery (06/2019) Migraine headache with aura Surgical History H/O dilation and curettage Family History (Updated 08/20/24 @ 15:52 by Kina Keith RN) Father Age: 64 Prostate cancer Diabetes mellitus Hypertension Chronic kidney disease Mother Age: 63 Diabetes mellitus Breast cancer Hypertension Aunt Breast cancer Aunt Breast cancer Family/Other Breast cancer Grandfather Diabetes mellitus Social History marital status: number of children: 1 household members: spouse (currently deployed), family (parents) and children lives independently: Yes caregiver/support person: Yes housing: house pets and animals: Yes (dog) education level: college (bachelor's degree) 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[employer]) current occupational exposures/hazards: No special dipesh needs: No travel history: over 6 months ago seatbelt use: always water heater temp set < 120 deg: Yes working smoke detector in home: Yes fire extinguisher in home: Yes carbon monox detector in home: Yes firearms in home: No do you feel safe at home: Yes second hand exposure: Yes (father smokes outside) alcohol intake: former (rarely when not ) substance use type: does not use during the past year weight has: increased > 10 lbs well-balanced diet: rarely or never daily servings fruits/ve-1 (1-2) caffeine: Yes (single cup coffee in AM) Type(s) of exercise: none Evaluation Evaluation Baseline heart rate: 135 Variability: Moderate (11-25) monitor accelerations: Present Monitor Decelerations: Absent Contraction Frequency (minutes): 0 Status: Category l Diagnosis, Plan/Disposition Final Diagnosis (1) Advanced maternal age in multigravida: Status: Acute (2) 36 weeks gestation of : Status: Acute Plan/Disposition Plan: Reactive nonstress test done for advanced maternal age OB Disposition: home
[2025-03-02 12:19] LABS: Strep Grp B PCR NEG for Grp B Strep
== END 2025-03-01 16:05 | disposition home or self-care (01) ==
PROVIDERS: Referring Provider Specialist; Visit Provider Specialist
DX: O09.522 Supervision of elderly multigravida, second trimester (principal); Z3A.36 36 weeks gestation of pregnancy
CPT/HCPCS: 59025; 87653; G0378

== ENCOUNTER 2025-03-08 15:01 | Outpatient (CLI) | payer OTHER, SELFPAY | END 2025-03-08 16:18 | disposition home or self-care (01) | LOC: LABOR 16:17 → OB 03-12 15:22 | PROVIDERS: Referring Provider Obstetrics & Gynecology; Visit Provider Obstetrics & Gynecology | DX: O60.03 Preterm labor without delivery, third trimester (principal); O09.523 Supervision of elderly multigravida, third trimester; Z3A.38 38 weeks gestation of pregnancy | CPT/HCPCS: 59025; G0378; G0379 ==

== ENCOUNTER 2025-03-15 12:04 | Inpatient (IN) | payer OTHER, SELFPAY ==
[2025-03-15] MEDS: LACTATED RINGERS 1,000 ML 999 ML IV (15:30)
[2025-03-15 15:54] LABS: Add Manual Diff / Slide Review NO; Basophils Absolute Auto 100 /uL (0-100); Basophils Percent Auto 0.7 % (0-2); Eosinophils Absolute Auto 100 /uL (0-450); Eosinophils Percent Auto 0.6 % (2-4); Hematocrit 30.2 % (36-46); Hemoglobin 9.5 g/dL (12.0-16.0); Lymphocytes Absolute Auto 2000 /uL (1100-4500); Lymphocytes Percent Auto 20.5 % (25-40); Mean Corpuscular HGB Conc 31.5 % (30-36); Mean Corpuscular Hemoglobin 21.8 PG (26-34); Mean Corpuscular Volume 69.2 fL (80-100); Monocytes Absolute Auto 600 /uL (0-900); Monocytes Percent Auto 5.9 % (3-14); Neutrophils Absolute Auto 7200 /uL (1500-7000); Neutrophils Percent Auto 72.3 % (50-75); Platelet Count 321 X10^3/uL (150-400); Red Blood Cell Count 4.36 X10^6/uL (4.0-5.2); Red Cell Distribution Width 17.7 % (11.6-14.8); White Blood Cell Count 9.9 X10^3/uL (4.5-11.0)
[2025-03-15] MEDS: CITRIC ACID/SODIUM CITRATE 15 ML SOLUTION 30 ML PO (15:55)
[2025-03-15] MEDS: CEFAZOLIN 2 GM/100 ML PREMIX 100 ML IV (16:01)
--- NOTE | 2025-03-15 16:02 | P.HPOB_ITS ---
OB HPI Date/Time Date of admission: 03/15/25 Date Patient Seen: 03/15/25 Time Patient Seen: 16:02 History of Present Condition Chief complaint: NST ANTONIA Calculator 2 Estimated Delivery Date Method Current WG Current Estimate 03/26/25 LMP (Certain) 38w 3d Other Estimates 03/30/25 Ultrasound #1 37w 6d Estimated Gestational Age (weeks): 38+3 : 3 Para: 1 Narrative: Patient is a 39 year old at 38+3 wks gest for a primary C section. Had a difficult delivery with first baby with a complicated tear with a 5# baby. She opts for a primary C section. care: good care, initiated at week # (9), number of visits (10) and pounds weight gain (24) Dating criteria OB: LMP confirmed by 1st trimester US Ultrasounds: normal 1st trimester US and normal mid trimester US Obstetrical complications: none Medical complications OB: none Indications Operative indications ( section): elective (due to difficult delivery with first baby at 5#) Preadmission Labs Last OB Lab Results: 2 Blood Type A Positive 09/03/24 15:46 Antibody Screen Negative 09/03/24 15:46 Hct 30.2 % (36-46) L 03/15/25 15:33 Hgb 9.5 g/dL (12.0-16.0) L 03/15/25 15:33 Hep Bs Antigen Negative s/c (NEGATIVE) 09/03/24 15:46 Hepatitis C Antibody Negative s/c (NEGATIVE) 09/03/24 15:46 Rubella Antibody 40.9 IU/mL (>15) 09/03/24 15:46 VZV IgG Antibody Reactive (Non Reactive) 09/03/24 15:46 Glucose 1 Hr 50 gm 101 mg/dL (76-139) 12/20/24 15:04 Group B Strep (PCR) Neg for grp b strep 03/01/25 15:22 -: Chlamydia screen: negative, Gonorrhea screen: negative and Urine: negative -: PAP smear: Normal Genetic Screens: Cell-free DNA: Normal (normal male) and Alpha-fetoprotein: Normal (normal) External Labs -: Urine: negative Prior (ies) Past Pregnancies Del. Date GA/Weeks Labor Lgth Wt Sex Route Outcome Anesthesia Place Delv Breastfeed Preg Comp Name 06/29/19 37 6 5 lb 8 oz Male vaginal forceps live - full term epidural IH no milk other Ma rcus Elisse 11/07/22 6-8 spontaneous Delivery Date: 06/29/19 Last Updated by: Kina Keith RN 3rd degree tear Delivery Date: 11/07/22 Last Updated by: Kina Keith RN Needed D&C, no further complications Hx # Term Pregnancies: 2 Hx # Pregnancies: 0 Number of Living Children: 1 Multiple births: 0 Spontaneous abortions: 1 Ectopic pregnancies: 0 Elective abortions: 0 Evaluation Evaluation Baseline heart rate: 135 Variability: Moderate (11-25) monitor accelerations: Present Monitor Decelerations: Absent Contraction Frequency (minutes): 5 Dilation (cm): 4 Effacement (%): 75 station: -1 [facility] Medical History (Updated 03/01/25 @ 16:02 by Felicity Rma MD) Contraceptive use Vaginal delivery (06/2019) Migraine headache with aura Surgical History H/O dilation and curettage Family History (Updated 08/20/24 @ 15:52 by Kina Keith RN) Father Age: 64 Prostate cancer Diabetes mellitus Hypertension Chronic kidney disease Mother Age: 63 Diabetes mellitus Breast cancer Hypertension Aunt Breast cancer Aunt Breast cancer Family/Other Breast cancer Grandfather Diabetes mellitus Social History marital status: number of children: 1 household members: spouse (currently deployed), family (parents) and children lives independently: Yes caregiver/support person: Yes housing: house pets and animals: Yes (dog) education level: college (bachelor's degree) 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[employer]) current occupational exposures/hazards: No special dipesh needs: No travel history: over 6 months ago seatbelt use: always water heater temp set < 120 deg: Yes working smoke detector in home: Yes fire extinguisher in home: Yes carbon monox detector in home: Yes firearms in home: No do you feel safe at home: Yes second hand exposure: Yes (father smokes outside) alcohol intake: former (rarely when not ) substance use type: does not use during the past year weight has: increased > 10 lbs well-balanced diet: rarely or never daily servings fruits/ve-1 (1-2) caffeine: Yes (single cup coffee in AM) Type(s) of exercise: none Meds Home Medications and Allergies Home Medications Medication Instructions Recorded Confirmed Type fluticasone propionate 50 spray intranasal 08/20/24 03/15/25 History mcg/actuation nasal spray,suspension loratadine 10 mg tablet 10 mg PO DAILY PRN 08/20/24 03/15/25 History meclizine 25 mg chewable tablet 25 mg PO 3XD 08/20/24 03/15/25 History vitamin with calcium 1 tab PO DAILY 08/20/24 03/15/25 History no.72-iron 27 mg-folic acid 1 mg tablet ( Vitamins Plus Low Iron) aspirin 81 mg tablet,delayed 81 mg PO DAILY #90 tabs 09/24/24 03/15/25 Rx release [id number] antigen-AS01E 0.5 ml IM ONCE #1 ea 01/30/25 03/15/25 Rx adjuvant(PF) 120 mcg/0.5 mL IM suspension, kit omeprazole 40 mg capsule,delayed 40 mg PO DAILY Acid reflux #30 caps 02/15/25 03/15/25 Rx release Double Electric Breast Pump 1 ea topical .prn #1 ea 02/25/25 03/15/25 Rx Allergies Allergy/AdvReac Type Severity Reaction Status Date / Time No Known Drug Allergies Allergy Verified 03/15/25 11:42 OB Exam Narrative Exam Narrative: Generally: A well-developed, well-nourished female, she is in mild distress secondary to contractions Lungs: Clear to auscultation bilaterally Cardiovascular: Regular rate and rhythm Fundal height: 38 cm Estimated weight: 6-1/2 lb Extremities: Trace edema Objective Labs 03/15/25 15:33 Labs: Laboratory Results - last 24 hr 03/15/25 15:33 WBC 9.9 RBC 4.36 Hgb 9.5 L Hct 30.2 L MCV 69.2 L MCH 21.8 L MCHC 31.5 RDW 17.7 H Plt Count 321 Neut % (Auto) 72.3 Lymph % (Auto) 20.5 L [place] % (Auto) 5.9 Eos % (Auto) 0.6 L Baso % (Auto) 0.7 Neut # (Auto) 7200 H Lymph # (Auto) 2000 [place] # (Auto) 600 Eos # (Auto) 100 Baso # (Auto) 100 Assessment and Plan Assessment and Plan Assessment and Plan narrative: Assessment: 39-year-old 3 para 1 at 38-,3/7 weeks gestation in labor Desires primary section due to difficult with a 5 lb baby Plan: Primary low transverse section The risks, benefits, and alternatives to the procedure were explained to the patient. The risks including bleeding, infection, injury to the bowel, bladder, or ureters. She understands these risks and agrees to proceed. A full par Q was held and consent form was signed. Time-Based Coding :: [TOTAL MINUTES] spent with patient and on the chart (including review of chart, obtaining history, exam, reviewing outside data, placing orders, documenting exam and treatment plan, and counseling patient) on [DATE].
--- NOTE | 2025-03-15 16:09 | PM.PREOP ---
Pre-operative Note Interval Note History & Physical reviewed/Exam performed by Physician: Yes Changes to H&P: No H&P completed within 30 days and has changed as indicated here:: 03/15/25
[2025-03-15] MEDS: ACETAMINOPHEN IV 1,000 MG/100 ML VIAL 400 MG IV (16:20)
[2025-03-15 16:29] LABS: Microcytosis 2+
--- NOTE | 2025-03-15 16:40 | SUR.OPER ---
Supine on Padded OR bed, head on pillow, safety belt at thigh, arms secured on padded arm boards at <90 degrees abduction. Bump under right buttock. Legs uncrossed with pillow under knees, gel pad to heels, tape over blanket to lower legs.
--- NOTE | 2025-03-15 17:02 | SUR.OPER ---
Addendum entered by Maria Elena Hernandez R.N. 03/15/25 17:27: Placenta and cord blood handed off to OB SUSIE Puentes Original Note: Viable baby boy born at 1637, Placenta delivered at 1640. FHR after spinal 150.
[2025-03-15 17:27] VITALS: BP 98/62; PULSE 82; RESP 18; TEMP 36.6; O2SAT 100
[2025-03-15 17:29] VITALS: BP 108/74; PULSE 79; RESP 20; O2SAT 100
[2025-03-15 17:34] VITALS: BP 110/66; PULSE 84; RESP 17; O2SAT 100
[2025-03-15 17:37] VITALS: BP 104/53; PULSE 87; RESP 22; TEMP 37.4; O2SAT 100
[2025-03-15] MEDS: LACTATED RINGERS 1,000 ML 42 ML IV (17:37)
--- NOTE | 2025-03-15 17:44 | PM.OBCS.1 ---
Operative Date/Time/Diagnoses Date of procedure: 03/15/25 Time of procedure: 17:44 Pre-op diagnosis: 38-,3/7 weeks gestation Early labor Desires primary section due to extensive tear with a 5 lb baby with first delivery Post-op diagnosis: same Procedure & Clinicians Procedure: Primary low-transverse section Same procedure as scheduled: Yes Indications: Patient is a 39-year-old 3 para 1 at 38-,3/7 weeks gestation in early labor. Patient has elected to have a primary section due to a significant tear with a 5 lb baby with first delivery. She is dilated to 4 cm. Is having some vaginal bleeding. Surgeon: My Rai Click Yes if Unassisted: No Classified Ad Clerk: Aileen Can Reason for Classified Ad Clerk: The resident assistant was necessary to retract upon entry into the abdomen and uterus. She assisted with fundal pressure with delivery of the . She assisted with closure with retraction, clipping of suture, and closure of the contralateral fascia. Anesthesia Type: Spinal (With Duramorph) Operative Notes Findings: Live male in the GAYE OT presentation. Cord wrapped around each ankle, and a loop of cord around both legs together. Moderate meconium-stained amniotic fluid Normal tubes and ovaries Normal uterus Closure Type: primary Specimen(s): cord blood, cord pH and placenta Intraoperative meds administered: Acetaminophen, Duramorph, Ketorolac and Pitocin Applied: Catheter (To continuous drainage) Estimated Blood Loss (mL): 150 Blood products transfused: none Procedure in detail: The patient was taken to the operating room where she was placed in the seated position. Spinal anesthesia was administered. She was then placed in the dorsal supine position with a leftward tilt. She was prepped and draped in the usual sterile fashion. A timeout was performed. After spinal analgesia was found to be adequate, a Pfannenstiel skin incision was made 2 fingerbreadths above the pubic symphysis and carried through to the underlying layer fascia. The fascia was nicked in the midline, and the incision extended bilaterally with the Greco scissors. The superior aspect of the fascial incision was grasped with a Marion clamps, elevated, and the underlying rectus muscles dissected off sharply and bluntly. Attention was then turned to the inferior aspect of this incision which in a similar fashion was grasped with a Marion clamps, elevated, and the underlying rectus muscles dissected off sharply and bluntly. The rectus muscles were in the midline. The peritoneum was identified, grasped between 2 hemostats, and entered sharply with the Metzenbaum scissors. This incision was extended superiorly and inferiorly with good visualization of the bladder. The bladder blade was inserted. The vesicouterine peritoneum was identified, grasped with the pickup, and entered sharply with the Metzenbaum scissors. This incision was extended bilaterally, and the bladder flap was created digitally. The bladder blade was reinserted. The lower uterine segment was incised in a transverse fashion with the scalpel. Upon entering the amniotic sac there was a moderate amount of meconium-stained amniotic fluid. The nose and mouth were suctioned with bulb suction. The remainder of the body delivered without difficulty after the cords were reduced from the legs. The cord was double clamped and cut after 1 minute. A piece of cord for cord pH was obtained. Pitocin was given in the IV fluids. The infant was handed off to waiting RN and RT. The placenta was delivered by expression. The uterus was cleared of all clots and debris. The uterine incision was repaired with #1 chromic in a running interlocking fashion, and a second layer the same suture was used for an imbricating layer. Hemostasis was achieved. The tubes and ovaries were examined and were found to be normal. The gutters were cleared of all clots and debris. The bladder flap was reapproximated using 2-0 Vicryl in a running fashion. The parietal peritoneum was closed using 2-0 Vicryl in a running fashion. The fascia was reapproximated using 0 Vicryl in a running fashion. The subcutaneous layer was copiously irrigated with warm normal saline. 5 simple interrupted sutures of 3-0 Vicryl were placed to reapproximate the subcutaneous layer. The skin was closed with 4-0 Monocryl in a subcuticular fashion. Steri-Strips were placed. An Aquacel dressing was placed. The uterus was expressed of a small amount of old blood. Sponge, lap, and instrument counts were correct ?-2. The patient tolerated the procedure well, and was taken to PACU in stable condition. Complications: none [place] Baby 1: Delivery Date: 03/16/25 Delivery Time: 16:37 Infant Gender: Male Presentation: vertex Position: Left Occiput Transverse Placental Delivery Description: Expressed Cord Vessel Description: 3 Vessels, Clamped/Cut (After 1 minute) and Around Body x1 (Around each ankle, and then a loop around both legs together) score (1 min): 8 score (5 min): 9 weight: 5 lb 14 oz Post-operative Condition: stable Disposition: PACU Aftercare: routine postop
[2025-03-15 19:40] VITALS: BP 127/67
[2025-03-16] MEDS: KETOROLAC 30 MG/ML VIAL IV ×3 (00:33→12:13)
[2025-03-16] MEDS: ACETAMINOPHEN 325 MG TABLET 650 MG PO ×4 (00:34→18:42)
[2025-03-16 07:02] LABS: Add Manual Diff / Slide Review NO; Basophils Absolute Auto 0 /uL (0-100); Basophils Percent Auto 0.3 % (0-2); Eosinophils Absolute Auto 0 /uL (0-450); Eosinophils Percent Auto 0.4 % (2-4); Hematocrit 26.4 % (36-46); Hemoglobin 8.5 g/dL (12.0-16.0); Lymphocytes Absolute Auto 1800 /uL (1100-4500); Lymphocytes Percent Auto 17.4 % (25-40); Mean Corpuscular Volume 68.7 fL (80-100); Monocytes Absolute Auto 600 /uL (0-900); Monocytes Percent Auto 5.9 % (3-14); Neutrophils Absolute Auto 7700 /uL (1500-7000); Platelet Count 254 X10^3/uL (150-400); Red Blood Cell Count 3.84 X10^6/uL (4.0-5.2); Red Cell Distribution Width 17.6 % (11.6-14.8); White Blood Cell Count 10.1 X10^3/uL (4.5-11.0)
[2025-03-16 07:16] LABS: Anisocytosis 2+; Hypochromasia 1+; Microcytosis 2+
[2025-03-16] MEDS: DOCUSATE 100 MG CAPSULE PO (09:15)
--- NOTE | 2025-03-16 12:37 | PM.OBPN.1 ---
Subjective - OB Subjective Patient comments: no complaints, pain well controlled, tolerating diet and flatus present baby status: doing well and bottle feeding well [place] feeding status: exclusively bottle feeding Narrative: Patient has decreased urine output, and very concentrated. Bladder scan not as accurate due to dressing. Ranged from 37-104 cc. Date Patient Seen: 03/16/25 Time Patient Seen: 12:38 Interval history: Pain is well controlled. Bottle feeding. Tolerating a diet. No nausea or vomiting. She has had decreased urine output. Is receiving a fluid bolus currently. Exam Vital Signs (past 8 hours): Oxygen Delivery Method Room Air Narrative Exam Narrative: Generally: Patient is sitting up in bed, no acute distress Lungs: Clear to auscultation bilaterally Cardiovascular: Regular rate and rhythm Fundus: Firm at U +1 Incision: Clean dry and intact with Aquacel dressing Extremities: Trace edema, negative Homans Objective Labs 03/16/25 06:30 Labs: Laboratory Results - last 24 hr 03/15/25 03/16/25 15:33 06:30 WBC 9.9 10.1 RBC 4.36 3.84 L Hgb 9.5 L 8.5 L Hct 30.2 L 26.4 L MCV 69.2 L 68.7 L MCH 21.8 L 22.0 L MCHC 31.5 32.0 RDW 17.7 H 17.6 H Plt Count 321 254 Neut % (Auto) 72.3 76.0 H Lymph % (Auto) 20.5 L 17.4 L [place] % (Auto) 5.9 5.9 Eos % (Auto) 0.6 L 0.4 L Baso % (Auto) 0.7 0.3 Neut # (Auto) 7200 H 7700 H Lymph # (Auto) 2000 1800 [place] # (Auto) 600 600 Eos # (Auto) 100 0 Baso # (Auto) 100 0 RBC Morphology See below Not Reportable Hypochromasia 1+ H Anisocytosis 2+ H Microcytosis 2+ H 2+ H Blood Type A Positive Antibody Screen Negative Assessment & Plan Plan day: 1 plan OB: routine postop care Comments: Fluid bolus and follow urine output over the next 3-4 hours Time-Based Coding :: [TOTAL MINUTES] spent with patient and on the chart (including review of chart, obtaining history, exam, reviewing outside data, placing orders, documenting exam and treatment plan, and counseling patient) on [DATE].
[2025-03-16] MEDS: IBUPROFEN 600 MG TABLET PO (18:41)
[2025-03-17] MEDS: ACETAMINOPHEN 325 MG TABLET 650 MG PO ×2 (01:19→08:22)
[2025-03-17] MEDS: IBUPROFEN 600 MG TABLET PO ×2 (01:19→08:23)
[2025-03-17] MEDS: OXYCODONE IR 5 MG TABLET PO ×2 (08:22→13:06)
[2025-03-17] MEDS: DOCUSATE 100 MG CAPSULE PO (08:23)
[2025-03-17 11:55] VITALS: BP 123/72; PULSE 88; RESP 20; TEMP 36.3
--- NOTE | 2025-04-05 12:30 | PM.OBDS.1 ---
Discharge Providers Provider Date of admission: 03/15/25 12:04 Discharge Date: 03/17/25 Primary care physician: Parvez EASTON Provider Consults: 03/15/25 17:48 Consult to Dry Cleaning Machine Operator Routine Comment: Discharge provider: My Rai MD Summary Hospital Course Date Patient Seen: 03/17/25 Time Patient Seen: 08:30 Diagnoses: 38-3/7 weeks gestation Presented in labor Significant obstetrical laceration with first delivery of a 5 lb baby Desired primary section Primary low transverse section Hospital Course: Patient is a 39-year-old 3 para 2 who presented on March 15, 2025 in early labor at 38-,3/7 weeks gestation. Patient was scheduled for primary low transverse section due to a significant obstetrical laceration with her first delivery of a 5 lb baby. She underwent a primary low transverse section on March 15, 2025 without complication. On postop day #1 she had some issues with low urine output after the catheter was removed. It did not appear that she was retaining urine. A fluid bolus was given and then patient's urine output picked up. She was discharged home on postop day # 2. She had no nausea or vomiting. She was tolerating a diet. She was ambulating independently. Pain was well controlled with oral medications. Bleeding was tapering. She was passing flatus. Peripartum Data Infant Delivery Method: Section (Primary) Procedures: Spinal anesthesia with Duramorph Primary low transverse section complications: other (Low urine output) [place] 1: Gender: Male Disposition of : home Status at Discharge Cognitive/behavioral status at discharge: oriented Functional status at discharge: independent ambulation Overall status at discharge: patient is progressing back to baseline Time Spent with Patient Time attestation: Total time spent providing and/or coordinating discharge services: Time spent: Less than 30 minutes Objective Labs 03/16/25 06:30 Exam Vital Signs (past 8 hours): Oxygen Delivery Method Room Air Narrative Exam Narrative: Generally: Patient is sitting up in bed, no acute distress Lungs: Clear to auscultation bilaterally Cardiovascular: Regular rate and rhythm Fundus: Firm at U -1 Incision: Clean dry and intact with Aquacel dressing Extremities: Trace edema, negative Homans Discharge Plan Discharge Plan Patient Disposition: Home Provider Discharge Comment: Call with fever, chills, redness or drainage around the incision, or bleeding vaginally more than a pad in an hour Ibuprofen 600 mg every 6 hours as needed Tylenol 650 mg every 6 hours as needed Stool softener as needed Push oral fluids Tight sports bra Discharge orders & Medications Prescriptions: New oxycodone 5 mg tablet 5 mg PO Q4H PRN (Reason: pain) Qty: 14 0RF ibuprofen 600 mg tablet 600 mg PO QID PRN (Reason: pain) Qty: 30 2RF docusate sodium [Colace] 100 mg capsule 100 mg PO DAILY Qty: 20 2RF Continued Vitamin Plus Low Iron 27 mg iron- 1 mg tablet 1 tab PO DAILY fluticasone propionate 50 mcg/actuation spray,suspension intranasal loratadine 10 mg tablet 10 mg PO DAILY PRN Discontinued Double Electric Breast Pump 1 ea topical .prn Qty: 1 0RF Rx Instructions: Breast pump and supplies RSVPreF3 antigen-AS01E (PF) 120 mcg/0.5 mL suspension for reconstitution 0.5 ml IM ONCE Qty: 1 0RF meclizine 25 mg tablet,chewable 25 mg PO 3XD aspirin 81 mg tablet,delayed release (DR/EC) 81 mg PO DAILY Qty: 90 3RF omeprazole 40 mg capsule,delayed release(DR/EC) 40 mg PO DAILY Qty: 30 1RF Follow up/Referrals: My Rai MD [Physician] - (Dr. Rai's office will call you on Tuesday to schedule a 1 week incision check. At that appointment, you can also schedule your follow up appointment 4-6wks out.) Diet/Activity/Treatments Diet: Regular Activity: No heavy lifting Skin/Wound/Dressing Care Report to your healthcare provider any signs of infection, such as:: chills, fever, increased pain, unusual drainage and unusual redness Dressing: Do not remove Visit Report/Discharge Packet Instructions: DI for , DI for Prescription Opioid Use Stand Alone Forms: Discharge: Care, Patient Portal/API, Stroke Signs & Symptoms Discharge Data Primary Care Provider: Parvez Jones
== END 2025-03-17 13:30 | disposition home or self-care (01) | DRG 788 ==
LOC: AC 17:01 → LABOR 17:01
PROVIDERS: Family Medicine; Admitting Provider Obstetrics & Gynecology; Referring Provider Obstetrics & Gynecology; Visit Provider Obstetrics & Gynecology
PROC: 10D00Z1 Extraction of Products of Conception, Low, Open Approach (ICD-10-PCS; CPT 59514; principal; 2025-03-15 15:00)
DX: O82 Encounter for cesarean delivery without indication (principal); Z3A.38 38 weeks gestation of pregnancy; Z37.0 Single live birth
CPT/HCPCS: 36415; 59050; 59510; 59514; 85025; 86850; 86900; 86901; G0379; J0131; J0690; J1885; J2274; J2405

== ENCOUNTER 2025-10-23 16:38 | Emergency (ER) | payer OTHER, SELFPAY ==
--- OUTSIDE RECORDS SUMMARY | 2025-10-23 16:40 | XMS_ITS | Encounter Summary ---
Author Organization [facility] Address [address] [place] [address] Care Team Providers Care Automotive Parts Specialist Name Role Phone Pcp, None Selected Primary Care Provider Unavail able Encounter Details Date Type Department Care Team (Late st Contact Info) Description 09/07/2022 Abstract [facility] [address], [address] [place] [address] Neal Killian MD [address] [place] [address] Social History Tobacco Use Types Packs/Day Years Used Date Smoking Tobacco: Never Assessed Comments Unknown Sex and Gender Information Value Date Recorded Sex Assigned at Not on file Legal Sex Female 8:37 AM PST Gender Identity Not on file Sexual Orientation Not on file documented as of this encounter Plan of Treatment Not on file documented as of this encounter Visit Diagnoses Not on filedocumented in this encounter Care Teams Automotive Parts Specialist Relationship Specialty Start Date End Date Pcp, None Selected PCP - General 02/21/25 documented as of this encounter
[2025-10-23 17:13] VITALS: BP 112/81; PULSE 94; RESP 17; TEMP 36.6; O2SAT 96; BMI 27.8
[2025-10-23] MEDS: ONDANSETRON 4 MG ODT SL (17:25)
--- NOTE | 2025-10-23 18:31 | ED_ITS ---
HPI - Nausea/Vomiting/Diarrhea General Chief complaint: Nausea/Vomiting/Diarrhea Stated complaint: Diarrhea/Vomitting since Tuesday Time Seen by Provider: 10/23/25 18:31 Source: patient Mode of arrival: Ambulatory History of Present Illness HPI Narrative: 40-year-old female presents with nausea vomiting diarrhea that has now turned to just watery diarrhea. this all started on Tuesday she is able to hold things down here with her son with identical symptoms. She is healthy otherwise with no significant medical history. Patient denies any abdominal pain, back pain, urinary complaints, fever, chills, body ach.es sore throat cough Related Data Home Medications ?Medication ?Instructions ?Recorded ?Confirmed fluticasone propionate 50 spray intranasal 08/20/24 mcg/actuation nasal spray,suspension loratadine 10 mg tablet 10 mg PO DAILY PRN 08/20/24 04/26/25 vitamins with calcium 1 tab PO DAILY 08/20/24 04/26/25 no.72-iron 27 mg-folic acid 1 mg tablet ( Vitamins Plus Low Iron) Previous Rx's ?Medication ?Instructions ?Recorded docusate sodium 100 mg capsule 100 mg PO DAILY #20 cap s 03/17/25 (Colace) ibuprofen 600 mg tablet 600 mg PO QID PRN pain #30 t abs 03/17/25 diphenoxylate-atropine 2.5 1 tab PO DAILY PRN diarrhea #10 10/23/25 mg-0.025 mg tablet (Lomotil) tabs ondansetron 4 mg disintegrating 4 mg PO Q6H PRN nausea and 10/23/25 tablet vomiting #30 tabs Allergies Allergy/AdvReac Type Severity Reaction Status Date / Time No Known Drug Allergies Allergy Verified 10/23/25 17:14 Review of Systems Review of Systems ROS Unobtainable: All systems reviewed & are unremarkable except as noted in HPI and below Patient History Medical History (Updated 10/23/25 @ 19:03 by Christiano Hamilton DO) Contraceptive use Vaginal delivery (06/2019) Migraine headache with aura Surgical History H/O dilation and curettage Family History (Updated 08/20/24 @ 15:52 by Kina Keith RN) Father Age: 65 Prostate cancer Diabetes mellitus Hypertension Chronic kidney disease Mother Age: 63 Diabetes mellitus Breast cancer Hypertension Aunt Breast cancer Aunt Breast cancer Family/Other Breast cancer Grandfather Diabetes mellitus Social History marital status: number of children: 1 household members: spouse (currently deployed), family (parents) and children lives independently: Yes caregiver/support person: Yes housing: house pets and animals: Yes (dog) education level: college (bachelor's degree) 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[employer]) current occupational exposures/hazards: No special dipesh needs: No travel history: over 6 months ago seatbelt use: always water heater temp set < 120 deg: Yes working smoke detector in home: Yes fire extinguisher in home: Yes carbon monox detector in home: Yes firearms in home: No do you feel safe at home: Yes second hand exposure: Yes (father smokes outside) alcohol intake: former (rarely when not ) substance use type: does not use during the past year weight has: increased > 10 lbs well-balanced diet: rarely or never daily servings fruits/ve-1 (1-2) caffeine: Yes (single cup coffee in AM) Type(s) of exercise: none Exam Narrative Exam Narrative: GENERAL: [40] year old patient appears stated age. Well-developed patient, in mild distress. HEAD: Atraumatic. Normocephalic. EYES: Pupils equal round and reactive. Extraocular motions intact. No scleral icterus. No injection or drainage. ENT: Nose without bleeding, purulent drainage. Throat without erythema, tonsillar hypertrophy or exudate. Airway patent. NECK: Trachea midline. Non tender CARDIOVASCULAR: Regular rate and rhythm without murmurs, gallops, or rubs. RESPIRATORY: Clear to auscultation. Breath sounds equal bilaterally. No wheezes, rales, or rhonchi. GASTROINTESTINAL: Abdomen soft, non-tender, nondistended. EXTREMITIES: No edema or joint tenderness. BACK: Nontender without deformity or crepitance. No flank tenderness. NEURO: AOx3. SKIN: No rash or erythema of visible areas Initial Vital Signs Initial Vital Signs: Vital Signs Temperature 97.9 F 10/23/25 17:13 Pulse Rate 94 H 10/23/25 17:13 Respiratory Rate 17 10/23/25 17:13 Blood Pressure 112/81 10/23/25 17:13 Pulse Oximetry 96 10/23/25 17:13 Oxygen Delivery Method Room Air 10/23/25 17:13 Course Orders Ordered: Discontinued Medications Ondansetron HCl (Ondansetron 4 Mg Odt) 4 mg SL NOW ONE Stop: 10/23/25 17:20 Last Admin: 10/23/25 17:25 Dose: 4 mg Documented By: KARRI Vital Signs Vital signs: Vital Signs - 8 hr 10/23/25 17:13 Temperature 97.9 F Pulse Rate 94 H Respiratory Rate 17 Blood Pressure 112/81 Pulse Oximetry 96 Oxygen Delivery Method Room Air MDM - Nausea/Vomiting/Diarrhea MDM Narrative Medical decision making narrative: All lab work, vital signs, nurse triage note, medication list, previous ER visits, and all imaging studies reviewed. DC home on zofran rx and lomotil rx. Differential dx - viral GE, dehydration,electrolyte derangement. Discharge Plan Departure Patient Disposition: Home Clinical Impression: Nausea vomiting and diarrhea Instructions: Nausea and Vomiting-Adult Activity Restrictions/Additional Instructions: Return with new or worsening symptoms. keep hydrated. Take medications as directed Follow up with pcp in 1 week if no improvement in symptoms. Prescriptions: New ondansetron 4 mg tablet,disintegrating 4 mg PO Q6H PRN (Reason: nausea and vomiting) Qty: 30 0RF diphenoxylate-atropine [Lomotil] 2.5-0.025 mg tablet 1 tab PO DAILY PRN (Reason: diarrhea) Qty: 10 0RF No Action Vitamin Plus Low Iron 27 mg iron- 1 mg tablet 1 tab PO DAILY fluticasone propionate 50 mcg/actuation spray,suspension intranasal loratadine 10 mg tablet 10 mg PO DAILY PRN ibuprofen 600 mg tablet 600 mg PO QID PRN (Reason: pain) Qty: 30 2RF docusate sodium [Colace] 100 mg capsule 100 mg PO DAILY Qty: 20 2RF Referrals: ProviderParvez [Primary Care Provider, Family Practice] Stand Alone Forms: Patient Portal/API
== END 2025-10-23 19:17 | disposition home or self-care (01) ==
PROVIDERS: Emergency Provider Family Medicine
DX: R11.2 Nausea with vomiting, unspecified (principal); R19.7 Diarrhea, unspecified
CPT/HCPCS: 99281; 99283